=== PATIENT | male | born 1975 | race Caucasian/White ===

== ENCOUNTER 2020-07-26 09:08 | Emergency (ER) | payer OTHER ==
[~2020-07-26] VITALS: Ht 177.8 cm; Wt 95.3 kg
[~2020-07-26 09:08] MED LIST: INTESTINEX1 CAP PO; MICARDIS40 MG PO; MICARDIS80 MG; ZANTAC150 M3 PO
[2020-07-26] MEDS ORDERED: AVAPRO300 MG PO (09:21)
== END 2020-07-26 10:50 ==
LOC: ER 09:08
DX: T15.01XA Foreign body in cornea, right eye, initial encounter (principal); X58.XXXA Exposure to other specified factors, initial encounter; Y93.89 Activity, other specified; Y92.89 Other specified places as the place of occurrence of the external cause; Y99.8 Other external cause status

== ENCOUNTER 2021-02-11 11:54 | Emergency (ER) | payer OTHER ==
[~2021-02-11] VITALS: Ht 180.3 cm; Wt 93.4 kg
[~2021-02-11 11:54] MED LIST changes: +AVAPRO300 MG PO
[2021-02-11] MEDS ORDERED: DICLOFENAC POTA50 MG PO (16:46)
[2021-02-11] MEDS ORDERED: HORIZANT600 MG PO (16:46)
[2021-02-11] MEDS ORDERED: ORPHENADRINE C100 MG PO (16:46)
== END 2021-02-11 16:52 ==
LOC: ER 11:54
DX: M54.31 Sciatica, right side (principal); M62.830 Muscle spasm of back